=== PATIENT | female | born 1965 | race Asian ===

== ENCOUNTER 2017-11-12 15:59 | Emergency (ER) | payer OTHER ==
[~2017-11-12] VITALS: Ht 152.4 cm; Wt 63.5 kg
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
[2017-11-12] MEDS ORDERED: ACETAMINOPHEN ES 500 MG TABLET ONE (16:29)
[2017-11-12] MEDS ORDERED: ACETAMINOPHEN ES 500 MG TABLET PO ONE (16:30)
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
[2017-11-12 18:23] VITALS: BP 140/90
--- NOTE | 2017-11-12 18:23 | NUR ---
Patient discharged to home in stable condition. Written and verbal after care instructions given. Patient verbalizes understanding of instruction.
== END 2017-11-12 18:23 | disposition home or self-care (01) ==
LOC: ER 16:01
DX: R51 Headache (principal); M25.512 Pain in left shoulder; R42 Dizziness and giddiness; E78.00 Pure hypercholesterolemia, unspecified; Z88.8 Allergy status to other drugs, medicaments and biological substances; V29.88XA Motorcycle rider (driver) (passenger) injured in other specified transport accidents, initial encounter; Y93.89 Activity, other specified; Y92.410 Unspecified street and highway as the place of occurrence of the external cause; Y99.8 Other external cause status
CPT/HCPCS: 70450-TC; 72125-TC; A4606; J7030; Z7610